=== PATIENT | male | born 1995 | race Caucasian/White ===

== ENCOUNTER 2017-11-20 10:06 | Emergency (ER) | payer OTHER ==
--- NOTE | 2017-11-20 10:25 | UC ---
Throat Pain/Nasal Paulie HPI - HPI Summary HPI Summary: 22 yo male presents with sinus congestion, sore throat, dry cough, and ear pressure for 1 week. This morning woke up with right eye red and crusty with some watery/yellow drainage. Has been taking zyrtec OTC. Denies fever, chills, SOB, chest pain, abdominal pain, n/v. - History of Current Complaint Stated Complaint: COUGH/SORE THROAT Hx Obtained From: Patient Onset/Duration: Gradual Onset Cough: Nonproductive - Allergies/Home Medications Allergies/Adverse Reactions: Allergies Allergy/AdvReac Type Severity Reaction Status Date / Time No Known Allergies Allergy Verified 11/20/17 10:19 Home Medications: Home Medications Cetirizine* [ZyrTEC 10 MG TAB*] 10 mg PO DAILY 11/20/17 [History Confirmed 11/20] PMH/Surg Hx/FS Hx/Imm Hx - Additional Past Medical History Additional PMH: None Previously Healthy: Yes - Surgical History Surgical History: None - Family History Known Family History: Positive: None - Social History Occupation: Employed Full-time Lives: Alone Alcohol Use: Occasionally Substance Use Type: None Smoking Status (MU): Never Smoked Tobacco Review of Systems Constitutional: Negative Skin: Negative Eyes: Drainage - RIGHT, Eye Redness - RIGHT ENT: Sore Throat, Ear Ache, Sinus Congestion Respiratory: Cough Cardiovascular: Negative Gastrointestinal: Negative Neurovascular: Negative Neurological: Negative Psychological: Negative All Other Systems Reviewed And Are Negative: Yes Physical Exam - Summary Physical Exam Summary: GENERAL: NAD. WDWN. No pain distress. SKIN: No rashes, sores, lesions, or open wounds. HEENT: Head: AT/NC Eyes: EOM intact. RIGHT EYE: Conjunctiva with moderate inflammation. Mild yellow crusting and discharge. Scleral injection. No edema. Left eye: WNL. Ears: Hearing grossly normal. TMs intact, no bulging, erythema, or edema. Nose: Nasal mucosa pink and moist. NTTP maxillary and frontal sinus. Throat: Posterior oropharynx without exudates, erythema, or tonsillar enlargement. Uvula midline. NECK: Supple. Nontender. No lymphadenopathy. CHEST: CTAB. No r/r/w. No accessory muscle use. Breathing comfortably and in no distress. CV: RRR. Without m/r/g. Pulses intact. Brisk cap refill. NEURO: Alert. CN II-XII grossly intact. PSYCH: Age appropriate behavior. Triage Information Reviewed: Yes Vital Signs: Vital Signs: Temp Pulse Resp BP Pulse Ox 99 F 61 16 120/84 98 11/20/17 10:20 11/20/17 10:20 11/20/17 10:20 11/20/17 10:20 11/20/17 10:20 Throat Pain/Nasal Course/Dx - Course Course Of Treatment: Right eye conjunctivitis. Allergies - Differential Dx/Diagnosis Provider Diagnoses: Right eye conjunctivitis. Allergies Discharge - Sign-Out/Discharge Documenting (check all that apply): Discharge/Admit/Transfer - Discharge Plan Condition: Stable Disposition: HOME Prescriptions: Polymyx/Trimethoprim OPTH* [Polytrim OPHTH*] 1 drop RIGHT EYE QID #1 btl Patient Education Materials: Allergies (ED), Conjunctivitis (ED) Referrals: No Primary Care Phys,NOPCP [Primary Care Provider] - Additional Instructions: If you develop a fever, shortness of breath, chest pain, new or worsening symptoms - please call your PCP or go to the ED. 1) Continue your zyrtec 2) Also try NASONEX over the counter - Billing Disposition and Condition Condition: STABLE Disposition: HOME
[2017-11-20 10:30] VITALS: BP 120/84
[2017-11-20] MEDS ORDERED: Polymyx/Trimethoprim OPTH* 10 ML BTL RIGHT EYE ONE (10:36)
== END 2017-11-20 10:51 | disposition home or self-care (01) ==
LOC: UCEAST 10:06
DX: H10.31 Unspecified acute conjunctivitis, right eye (principal); J30.9 Allergic rhinitis, unspecified
CPT/HCPCS: 99202; G0463

== ENCOUNTER 2018-05-27 15:20 | Emergency (ER) | payer OTHER ==
[2018-05-27 15:35] VITALS: BP 136/70
[2018-05-27] MEDS ORDERED: Ibuprofen TAB* 600 MG PO ONE (15:44)
--- NOTE | 2018-05-27 15:46 | UC ---
FLU HPI - HPI Summary HPI Summary: pt felt fine until 9am this morning when he got sudden fever/chills/nausea/ vomiting - History of Current Complaint Chief Complaint: UCGI Stated Complaint: aches, VOMITING, AND CHILLS Time Seen by Provider: 05/27/18 15:26 Hx Obtained From: Patient Onset/Duration: Sudden Onset Severity Currently: Moderate Pain Intensity: 5 Associated Signs & Symptoms: Positive: Fever, Headache, Vomiting. Negative: Cough, Sore Throat - Allergy/Home Medications Allergies/Adverse Reactions: Allergies Allergy/AdvReac Type Severity Reaction Status Date / Time No Known Allergies Allergy Verified 05/27/18 15:28 Home Medications: Home Medications NK [No Home Medications Reported] 05/27/18 [History Confirmed 05/27/18] PMH/Surg Hx/FS Hx/Imm Hx Previously Healthy: Yes - Surgical History Surgical History: None Surgery Procedure, Year, and Place: cosmetic surgery on both ears when child. - Family History Known Family History: Positive: None - Social History Occupation: Employed Full-time Lives: With Family Alcohol Use: Weekly Substance Use Type: None Smoking Status (MU): Never Smoked Tobacco - Immunization History Most Recent Tetanus Shot: utd Review of Systems All Other Systems Reviewed And Are Negative: Yes Constitutional: Positive: Fever, Chills Skin: Positive: Negative ENT: Negative: Sore Throat, Ear Ache, Sinus Congestion Respiratory: Positive: Negative. Negative: Cough Cardiovascular: Positive: Negative Gastrointestinal: Positive: Vomiting Genitourinary: Positive: Negative Neurological: Negative: Headache Psychological: Positive: Negative Is Patient Immunocompromised?: No Physical Exam Triage Information Reviewed: Yes Appearance: Well-Appearing, No Pain Distress, Well-Nourished Vital Signs: Initial Vital Signs Temp 101 F 05/27/18 15:28 Pulse 119 05/27/18 15:28 Resp 16 05/27/18 15:28 BP 136/70 05/27/18 15:28 Pulse Ox 99 05/27/18 15:28 Vital Signs Reviewed: Yes ENT: Positive: Pharynx normal, TMs normal Neck exam: Normal Respiratory Exam: Normal Respiratory: Positive: Lungs clear Cardiovascular Exam: Normal Cardiovascular: Positive: RRR Abdominal Exam: Normal Abdomen Description: Positive: Nontender, No Organomegaly, Soft Bowel Sounds: Positive: Present Musculoskeletal Exam: Normal Neurological Exam: Normal Psychological Exam: Normal Skin Exam: Normal Skin: Negative: Rashes Flu Course/Dx - Differential Dx/Diagnosis Differential Diagnosis/HQI/PQRI: Influenza, Other - viral illness Provider Diagnosis: Viral illness Discharge - Sign-Out/Discharge Documenting (check all that apply): Patient Departure All imaging exams completed and their final reports reviewed: No Studies - Discharge Plan Condition: Good Disposition: HOME Patient Education Materials: Viral Syndrome (ED), Clear Liquid Diet (ED) Forms: *School Release Referrals: No Primary Care Phys,NOPCP [Primary Care Provider] - Additional Instructions: drink plenty of fluids clear liquids only for 24-48hours and then advance diet slowly use ibuprofen or tylenol to treat fever follow-up at urgent care or ER if your symptoms worsen - Billing Disposition and Condition Condition: GOOD Disposition: Home
== END 2018-05-27 16:09 | disposition home or self-care (01) ==
LOC: UCEAST 15:20
DX: B34.9 Viral infection, unspecified (principal)
CPT/HCPCS: 99212; A9270-GY; G0463